=== PATIENT | female | born 1955 | race Caucasian/White ===

== ENCOUNTER 2016-06-22 18:57 | Observation (INO) ==
[2016-06-22] MEDS ORDERED: methylPREDNISolone 125 MG/2 ML VIAL IVP ONE (19:02)
[2016-06-22] MEDS ORDERED: Ipratropium/Albuterol Neb 3 ML IH ONE (19:02)
[2016-06-22 19:21] LABS: Basophils % 0.3 %; Eosinophils # 0.1 K/mcL (0.0-0.6); Eosinophils % 0.8 %; Hematocrit 38.1 % (35.3-44.9); Hemoglobin 12.2 g/dL (11.5-15.4); Immature Granulocytes % 0.4 % (0-4); Lymphocytes # 1.2 K/mcL (0.6-4.6); Lymphocytes % 12.2 %; Mean Corpuscular Hemoglobin 28.7 pg (28.0-33.3); Mean Corpuscular Volume 89.6 fL (83.0-100.0); Mean Platelet Volume 8.4 fL (9.4-12.4); Monocytes # 0.4 K/mcL (0.0-1.3); Monocytes % 3.5 %; Neutrophils # 8.2 K/mcL (1.6-8.9); Platelet Count 246 K/mcL (140-400); Red Blood Count 4.25 M/mcL (3.82-4.97); Red Cell Distribution Width 12.9 % (11.5-14.5); Segmented Neutrophils % 82.8 %
[2016-06-22 19:27] LABS: INR 1.1; Prothrombin Time 11.9 Seconds (9.4-12.1)
[2016-06-22 19:29] LABS: Activated Partial Thrombo Time 23.8 Seconds (26.0-36.0)
--- NOTE | 2016-06-22 19:29 | Emergency Department Note ---
Disposition Clinical Impression: Acute exacerbation of chronic obstructive airways disease, Hypoxia Dyspnea Qualifiers: Dyspnea type: shortness of breath Qualified Code(s): R06.02 - Shortness of breath Disposition: Admitted As Inpatient Condition: Good Time of Disposition: 20:31 SOB HPI - General Chief Complaint: ED Shortness of Breath/Dyspnea Stated Complaint: SOB Time Seen by Provider: 06/22/16 19:01 Source: patient, EMS Mode of arrival: EMS Limitations: no limitations Nursing Notes Reviewed: Yes Vital Signs Reviewed: Yes - History of Present Illness Patient presents emergency room by EMS for evaluation of acute onset of shortness of breath at home. Presented by EMS today for evaluation of shortness of breath. Onset was approximately 30 minutes prior to arrival. Patient has known COPD and emphysema. She uses inhalers and nebulizer treatments at home. She does not typically require oxygen. She is followed at an outside facility where she is evaluated on a regular basis. She denies any recent illnesses denies fevers chills nausea vomiting or diarrhea. Denies chest pain or shortness of breath. Currently she is only complaining of the intermittent shortness of breath that brought her in. She is provided with 1 breathing treatment in transit by EMS and felt much better. Pt Subjective Complaint: shortness of breath Onset (ago): Just [employer] Severity: moderate Consistency/Duration: now resolved Improves with: oxygen, rest, bronchodilators, upright position Worsens with: lying flat, exertion, movement, coughing Known history of: COPD Associated symptoms: Reports: denies other symptoms Treatment prior to arrival: oxygen, bronchodilator Cough present: No Sputum production: No - Related Data Home oxygen amount: none Allergies Allergy/AdvReac Type Severity Reaction Status Date / Time No Known Allergies Allergy Verified 06/22/16 19:17 All systems ED: reviewed and negative except as stated. Constitutional: Denies: fever, chills Cardiovascular: Reports: dyspnea on exertion, orthopnea. Denies: chest pain, palpitations Respiratory: Reports: dyspnea, wheezes. Denies: cough, hemoptysis Gastrointestinal: Denies: nausea, vomiting, diarrhea Genitourinary: Denies: dysuria, frequency Musculoskeletal: Denies: back pain, neck pain Past Medical History - Past Medical History Attestation: Yes The following information was validated with the patient. Source: patient Medical history: Reports: COPD, coronary artery disease, CVA, hyperlipidemia, hypertension, myocardial infarction, peripheral artery disease Psychiatric history: Reports: anxiety, depression - Social History Smoking Status: Former smoker Smokeless Tobacco Status: No Alcohol use: Reports: rarely Drug use: Reports: none Physical Exam - General General appearance: alert - Head Head exam: atraumatic, normocephalic - Eye Eye exam: Present: normal appearance - ENT ENT exam: normal exam, normal oropharynx - Neck Neck exam: Present: normal inspection - Chest Chest inspection: Present: normal inspection, symmetric chest wall rise. Absent : tenderness - Respiratory Respiratory exam: Present: normal lung sounds bilaterally, respiratory distress , wheezes, accessory muscle use - Cardiovascular Cardiovascular exam: Present: regular rate, normal rhythm, normal heart sounds - Abdominal Exam Abdominal exam: Present: soft, Non-Tender, normal bowel sounds - Extremities Exam Extremities exam: Present: normal inspection, full ROM, normal capillary refill , pedal edema (+1 pitting edema up to the midcalf) - Expanded Lower Extremity Exam Lower leg exam: Absent: tenderness, swelling, Homans' sign - Back Exam Back exam: Present: normal inspection - Neurological Exam Neurological exam: Present: alert, oriented X3, CN II-XII intact, normal gait - Skin Skin exam: Present: warm, dry, intact, normal color Course Course Narrative: Patient seen and examined the time of arrival by EMS. 61-year-old female presents today with known history of COPD and emphysema. She feels like she is having acute exacerbation of her COPD. Patient was leaving the house today walked outside and felt short of breath. Within the next 30 minutes she had increased work of breathing. Family is concerned and called EMS. Patient is up visiting family from outside town. She normally has all of her medical care completed in [facility]. Patient denies chest pain fevers chills nausea vomiting or diarrhea. Denies headache vision changes at this point. She denies any falls injuries or trauma. No recent illnesses. Patient was provided with 1 breathing treatment prior to arrival by EMS. Her initial vital signs showed mild tachycardia and hypoxia down the low 90s with no oxygen. When she was given a breathing treatment and placed on 2 L of oxygen by nasal cannula her pulse ox came up to 97%. On presentation here. Patient has mild increased work of breathing she has no acute signs of diffuse wheezing on exam her heart is regular abdomen soft nontender nondistended. She has mild pitting edema in the lower extremities but no acute signs of fluid overload. She is able to converse in full sentences without any signs of shortness of breath. She denies any other symptoms or complaints prior to today. She has no recent illnesses fevers or chills or productive cough. Chest x-ray EKG troponin steroids and breathing treatments ordered at this time. Basic laboratory workup to be completed. Patient is stable appears to be on feeling better at presentation and has what appears to be an exacerbation of chronic lung related issues. We will effectively evaluate for infectious etiology cardiac source undetermined disposition. Discussed possible admission secondary to patient not having any medical records at this facility and my concern for outpatient decompensation secondary to her presentation. Patient is comfortable with this plan if need be - Reevaluation(s) Reevaluation #1: Patient's EKG shows sinus rhythm no acute signs of ST segment elevation. There is no comparable study. Chest x-ray stable in no acute consolidation or signs of infection. Labs are all within normal limits. Repeat evaluation of the patient's lungs show better aeration at this time and air movement. She has less work of breathing at this point. Patient is a poorly controlled COPD patient. She responded appropriately to 3 continue his DuoNeb and steroids here. Concern is noted for outpatient decompensation secondary to multiple events similar to this in her history. Patient usually requires a day in the hospital for steroids and breathing treatments scheduled. Patient denies productive cough or sputum concern for infectious etiology at this time. On my repeat evaluation her pulse ox was 91% on room air while sitting. When she started to converse the pulse ox decreased. Patient may require further evaluation possible outpatient establish care. Disposition will be admitted the hospital at this time. Hospitals paged at this point Time: 20:30 Reevaluation #2: Dr. Meyers and I reviewed the patient's presentation symptoms course of care medical intervention. It except the patient hospital for treatment of what appears to be an acute exacerbation of COPD. No other acute etiology noted during this evaluation treatment course. Recommendation for the hospitalist to order scheduled breathing treatments upstairs which I have accommodated and placed the order for this time. Patient will be observed here in the emergency room until admission process is completed. Time: 20:57 Vital Signs Temperature 98.4 F 06/22/16 19:00 Pulse Rate 98 06/22/16 19:00 Respiratory Rate 25 06/22/16 19:00 Blood Pressure 124/113 06/22/16 19:00 O2 Sat by Pulse Oximetry 93 06/22/16 19:00 Temperature 98.2 F 06/22/16 22:22 Pulse Rate 76 06/22/16 22:22 Respiratory Rate 18 06/22/16 22:22 Blood Pressure 129/61 06/22/16 22:22 O2 Sat by Pulse Oximetry 95 06/22/16 22:22 Oxygen Delivery Oxygen Delivery Room Air Shortness of Breath/Dyspnea - MDM Narrative Medical decision making narrative: COPD exacerbation - Medical Records Medical records reviewed: Yes I reviewed the patient's medical records. - Lab Data Lab results reviewed: Yes I reviewed the patient's lab results. Result diagrams: 06/22/16 19:15 06/22/16 19:15 - Radiology Data Radiology results reviewed: Yes I reviewed the patient's radiology results. Chest x-ray stable no acute signs of pulmonary infiltrate. Reviewed by myself and confirmed by the radiologist - EKG Data EKG attestation: Yes I reviewed and interpreted this EKG. EKG shows normal: Reports: sinus rhythm, axis, intervals, QRS complexes, ST-T waves Rate: Reports: normal Rhythm: Reports: NSR [place]/QRS: Reports: normal When compared to previous EKG there are: previous EKG unavailable Interpretation: Reports: no acute changes Attestation Statement - Attestation Attestation: I examined this patient and my medical decision-making was reviewed with the BOTTOM TURNER/PA/Advanced Practice Nurse/Resident Physician. I agree with the documented findings, disposition and treatment plan as described except to the extent set forth below. 61-year-old female presents ED because difficulty breathing. She has history of COPD. She is on home nebulizer treatments with reasonable control. She is staying with her son today and started having increasing dyspnea. She took a home albuterol inhaler with marginal improvement and called EMS. Denies productive cough. No fevers. No chest pain. No recent long distance travel. No periods of prolonged immobilization. No recent travel Patient is slightly tachypneic. She is awake alert talkative. Oropharynx is clear. Neck is supple. Trachea midline. Chest with inspiratory and expiratory wheezes in all lung multani. No focal consolidation. Breath sounds are symmetrically diminished. Cardiac regular rhythm. No murmurs. Abdomen soft and nontender. Extremities warm and dry without asymmetric edema. Chest x-ray was without any acute findings. She was slow to respond to sequential DuoNeb treatments and steroids. She will be admitted for ongoing observation and treatment.
[2016-06-22 19:35] LABS: Calcium 9.2 mg/dL (8.6-10.8); Potassium 4.2 mEq/L (3.5-4.5)
[2016-06-22] MEDS: Albuterol 2.5 MG/3 ML NEBULIZER IH SCH ×2 (21:12→23:14)
[2016-06-23] MEDS ORDERED: Acetaminophen 325 MG TABLET PO PRN (02:39)
[2016-06-23] MEDS ORDERED: Naloxone 0.4 MG/ML INJ IVP PRN (02:39)
[2016-06-23] MEDS ORDERED: Albuterol 2.5 MG/3 ML NEBULIZER IH PRN (02:39)
[2016-06-23] MEDS ORDERED: *HR* Promethazine 25 MG/ML VIAL IVP PRN (02:39)
[2016-06-23] MEDS ORDERED: 0.9 % Sodium Chloride 1,000 ML IVC SCH (02:45)
--- NOTE | 2016-06-23 02:52 | Internal Med History&Physical ---
Date of Encounter: 06/23/16 Time of Encounter: 02:05 Assessment and Plan (1) Acute exacerbation of chronic obstructive airways disease Current visit: Yes Status: Acute 1. Pt seems to have improved immensely since ER presentation. 2. Continue steroids, aerosols, and will add oral doxycyline for possible bacterial etiology. 3. Wean off oxygen. 4. I anticipate discharge later today or tomorrow if continues to improve. (2) Chronic low back pain Current visit: Yes Status: Chronic 1. Continue home meds as appropriate. 2. No acute flare up or exacerbation. Qualifiers: Back pain laterality: bilateral Sciatica presence: with sciatica Sciatica laterality: bilateral sciatica Qualified Code(s): M54.42 - Lumbago with sciatica, left side; M54.41 - Lumbago with sciatica, right side; G89.29 - Other chronic pain (3) DVT prophylaxis Current visit: Yes Status: Acute 1. Heparin SQ. Internal Medicine - H&P: HPI Chief complaint: cough, wheeze, SOB Admitted From: Emergency Dept Plans for Post Hospital Care: Home History of present illness: Ms. Vasquez is a 61 year old female who presents with a 2 day history of cough, wheezing, congestion, and worsening shortness of breath. She has a history of underlying COPD and has been feeling well until 2 days ago. She denies any difficulty with the weather or environmental allergies. However, she was visiting her son in [place] and his girlfriend who breeds dogs. She noticed significant wheezing and shortness of breath with exposure to these dogs and dog dander. Despite using her inhalers, she continued to wheeze and be short of breath. She went to the ER for evaluation and workup. She improved with treatment in the ER. However, she still was symptomatic and working a little hard to breathe. She was therefore admitted to the hospitalist service. Upon my assessment of the patient, she was sleeping and breathing comfortably. Upon awakening, she states she feels much better than initial presentation. She still has some wheezing and cough, but overall, she has improved significantly. She is a former smoker and quit several years ago. She was last hospitalized for COPD about 9 months ago. She has never been in the ICU or on ventilator for COPD exacerbation. Past Med Surg Social Fam HX - Past Medical History Attestation: Yes The following information was validated with the patient. Source: patient, nursing notes reviewed Medical history: COPD, coronary artery disease, CVA, hyperlipidemia, hypertension, myocardial infarction, peripheral artery disease, other (chronic low back pain) Psychiatric history: anxiety, depression - Past Surgical History Surgical History: cholecystectomy, hysterectomy, other (back/spine surgery) - Social History Smoking Status: Former smoker Smokeless Tobacco Status: No Alcohol use: rarely Drug use: none Current living situation: Home, With Family Activity Level: Uses cane/walker Recent Out of Country Travel Within the Last 8 Weeks: No - Family History Mother Living Status: Hx Family Respiratory Disorders: No Hx Family Neurologic Disorders: Yes Father Living Status: Hx Family Respiratory Disorders: Yes Internal Medicine - H&P: Meds Amitriptyline HCl 100 mg PO HS 06/23/16 [History] Atorvastatin [Lipitor] 40 mg PO HS 06/23/16 [History] Diltiazem 24Hr Cd 300 mg PO HS 06/23/16 [History] Escitalopram [Lexapro] 10 mg PO DAILY 06/23/16 [History] Gabapentin [Neurontin] 400 mg PO TID 06/23/16 [History] Ibuprofen [Motrin] 800 mg PO Q6H PRN 06/23/16 [History] Melatonin [Melatonin] 300 mcg PO HS PRN 06/23/16 [History] OxyCONTIN 30 mg PO Q12HR 06/23/16 [History] Oxycodone HCl [Oxaydo] 5 mg PO QID 06/23/16 [History] Tizanidine HCl 4 mg PO TID PRN 06/23/16 [History] Allergies No Known Allergies Allergy (Verified 06/22/16 19:17) - Constitutional Constitutional: no chills, no fever(s) - EENT Eyes: no blurry vision, no change in vision Ears: no ear pain, no tinnitus Nose, mouth and throat: nasal congestion, nasal discharge, post-nasal drip, no sinus pressure, no sore throat - Cardiovascular Cardiovascular ROS IM: no chest pain, no diaphoresis, no lightheadedness, no orthopnea - Respiratory Respiratory: cough, dyspnea, wheezing, chest congestion, no hemoptysis - Gastrointestinal Gastrointestinal: no abdominal pain, no diarrhea, no hematemesis, no hematochezia, no melena, no nausea, no vomiting - Genitourinary Genitourinary: no dysuria, no flank pain, no hematuria - Musculoskeletal Musculoskeletal ROS IM: back pain, no arthralgias - Integumentary Integumentary IM: no rash, no jaundice - Neurological Neurological ROS: abnormal gait (chronic -- due to back problems and surgery), no dizziness, no focal weakness, no frequent falls, no headache(s) - Psychiatric Psychiatric: no anxiety, no depression - Endocrine Endocrine IM: no polydipsia, no polyuria - Hematologic/Lymphatic Hematologic/Lymphatic: no easy bruising, no lymphadenopathy - Allergic/Immunologic Allergic/Immunologic: itchy eyes, wheezing, no uticaria, no GI upset with certain foods - Constitutional Vitals: Temp Pulse Resp BP Pulse Ox 98.2 F 76 16 129/61 93 06/22/16 22:22 06/22/16 22:22 06/22/16 23:14 06/22/16 22:22 06/22/16 23:14 General appearance: Present: cooperative, A&O X 3, pleasant, no acute distress - Head Head exam: Present: atraumatic, normal inspection - Expanded Head Exam Head exam expanded: Absent: general tenderness - Eye Eye exam: Present: EOMI, PERRL. Absent: scleral icterus Pupils: Present: normal accommodation - ENT ENT exam: Present: mucous membranes dry, normal exam - Neck Neck exam general surgery: Present: full ROM, supple. Absent: tenderness, thyromegaly - Respiratory Respiratory exam: Present: accessory muscle use, decreased breath sounds, prolonged expiratory phase, respiratory distress (mild), wheezes. Absent: chest wall tenderness, rales, rhonchi - Cardiovascular Cardiovascular exam: Present: distant heart sounds, RRR, +S1, +S2. Absent: diastolic murmur, systolic murmur - GI/Abdominal GI/Abdominal exam: Present: normal bowel sounds, soft, no peritoneal signs. Absent: guarding, hepatomegaly, rebound, splenomegaly, tenderness - Extremities Exam Extremities exam: Present: full ROM, warm. Absent: calf tenderness, joint swelling, tenderness - Back Exam Back exam: Present: normal inspection. Absent: CVA tenderness (L), CVA tenderness (R) - Neurological Exam Neurological exam: Present: alert, CN II-XII intact, oriented X3, no focal deficits, strengths equal and symetr throughout - Psychiatric Psychiatric exam: Present: normal affect, normal mood - Skin Skin exam: Present: dry, warm. Absent: rash Internal Med - H&P Results - Labs CBC & Chem 7: 06/22/16 19:15 06/22/16 19:15 - Diagnostic Studies Chest x-ray Status: image reviewed by me (negative other than elevated left hemidiaphragm)
[2016-06-23 02:58] LABS: Bilirubin,Urine Small (Negative); Blood,Urine Negative (Negative); Clarity,Urine Cloudy (Clear); Color,Urine Dark Yellow (Yellow); Glucose,Urine (UA) 100 mg/dL (Normal); Ketones,Urine Negative (Negative); Leukocyte Esterase,Urine Small (Negative); Nitrite,Urine Negative (Negative); PH,Urine 5.5 pH Units (5.0-8.0); Protein,Urine 30 mg/dL (Neg-Trace); Specific Gravity,Urine 1.025 (1.010-1.025); Urobilinogen,Urine Normal (Normal)
[2016-06-23 03:01] LABS: Bacteria,Urine Many per hpf (None-Few); Hyaline Casts,Urine Few per lpf (None-Few); Squamous Epithelial Cell,Urine Many per lpf (None-Few); WBC,Urine 15-30 per hpf (0-3)
[2016-06-23 03:53] LABS: Calcium 9.3 mg/dL (8.6-10.8); Magnesium 2.7 mg/dL (1.6-2.6)
[2016-06-23] MEDS: Ipratropium/Albuterol Neb 3 ML IH SCH ×2 (03:56→11:04)
[2016-06-23] MEDS: Doxycycline 100 MG CAPSULE PO SCH ×2 (05:19→09:12)
[2016-06-23] MEDS ORDERED: *HR* Heparin 5,000 UNIT/ML VIAL SQ SCH (06:00)
[2016-06-23] MEDS ORDERED: *HR* OxyCODONE ER (12 HR) 10 MG TABLET PO SCH (06:00)
[2016-06-23] MEDS ORDERED: methylPREDNISolone 125 MG/2 ML VIAL IVP SCH (06:00)
[2016-06-23] MEDS: *HR* OxyCODONE Immed Rel 5 MG TABLET PO PRN ×2 (09:12→15:19)
[2016-06-23] MEDS: Gabapentin 400 MG CAPSULE PO SCH ×2 (09:12→15:19)
[2016-06-23 11:33] VITALS: BP 152/82
--- NOTE | 2016-06-23 12:54 | Electrocardiograph Report ---
[place] [id number] Test Date: 2016-06-22 Pat Name: Ellen Vasquez Department: 105 Room: [facility] Gender: F Manager [employer]: [employer] : 1955 Requested By: Miguel Angel Ricks Order Number: [id number] Reading MD: Dwaine Rogers Measurements Intervals [place] Rate: 95 P: 13 MO: 173 QRS: -24 QRSD: 98 T: 16 QT: 330 QTc: 383 Interpretive Statements SINUS RHYTHM Electronically Signed On 06-23-2016 12:52:31 EDT by Dwaine Rogers
--- NOTE | 2016-06-23 14:25 | Discharge Summary ---
Date of Encounter: 06/23/16 Time of Encounter: 09:20 - Discharge Diagnosis (1) Acute exacerbation of chronic obstructive airways disease Priority: Primary Status: Acute Comments: Patient presented to the emergency department last night for shortness of breath. She staying with her son while she tries to find a place to live in town, she says that she believes being exposed to multiple dogs at her son's house caused her to have difficulty. She had greatly improved since arriving at the ER by the time she was admitted. We will continue a steroid taper. Patient does not wear oxygen at home. Her lungs are clear. She denies pain or difficulty breathing. She speaks easily in full sentences. Chest x-ray in the emergency department showed nonspecific elevation left hemidiaphragm. No focal consolidation in the chest. She says she will follow- up with her primary care physician at home. EKG showed sinus rhythm rate 95, [place] interval 173, QTC 383. She is denying chest pain. Patient has UTI as well. Culture is pending. I will give her Levaquin 250 mg daily for 3 days until blood cultures come back. (2) Chronic low back pain Priority: Secondary Status: Chronic Comments: Continue home medications. Qualifiers: Back pain laterality: bilateral Sciatica presence: with sciatica Sciatica laterality: bilateral sciatica Qualified Code(s): M54.42 - Lumbago with sciatica, left side; M54.41 - Lumbago with sciatica, right side; G89.29 - Other chronic pain (3) DVT prophylaxis Priority: Secondary Status: Acute Comments: Heparin subcutaneous. (4) UTI (urinary tract infection) Priority: Secondary Status: Acute Comments: Patient currently has a urinary tract infection. Will give Levaquin to treat both COPD exacerbation and urinary tract infection. Cultures pending patient will need to be notified if she needs a different antibiotic. Qualifiers: Urinary tract infection type: acute cystitis Hematuria presence: without hematuria Qualified Code(s): N30.00 - Acute cystitis without hematuria - Discharge Medications Prescriptions: Levofloxacin [Levaquin] 250 mg PO BID #8 tablet PredniSONE [Jose] 10 mg PO DAILY #31 tablet. Home Medications: Albuterol Sulfate [Ventolin Hfa] 2 puff IH Q4H PRN 06/23/16 [History] Amitriptyline HCl 100 mg PO HS 06/23/16 [History] Atorvastatin [Lipitor] 40 mg PO HS 06/23/16 [History] Diltiazem CD (24hr) [Cardizem CD] 300 mg PO DAILY 06/23/16 [History] Escitalopram [Lexapro] 10 mg PO DAILY 06/23/16 [History] Gabapentin [Neurontin] 400 mg PO TID 06/23/16 [History] Ibuprofen [Motrin] 800 mg PO Q6H PRN 06/23/16 [History] Levofloxacin [Levaquin] 250 mg PO BID #8 tablet 06/23/16 [Rx] Melatonin 300 mcg PO HS PRN 06/23/16 [History] OxyCONTIN 30 mg PO Q12HR 06/23/16 [History] Oxycodone HCl [Oxaydo] 5 mg PO QID 06/23/16 [History] PredniSONE [Jose] 10 mg PO DAILY #31 tablet. 06/23/16 [Rx] Tizanidine HCl 4 mg PO TID PRN 06/23/16 [History] Allergies/Adverse Reactions: Allergies No Known Allergies Allergy (Verified 06/23/16 11:58) Date of admission: 06/22/16 21:10 Primary care physician: PCP NO Discharging clinician: Nsurat Napier Anticipated date of discharge: 06/23/16 - Patient Status Disposition: Home, Self-Care Functional capacity at discharge: independent ambulation Overall status at discharge: patient is back to baseline - Discharge Instructions Follow Up With: NO,PCP [Primary Care Provider] - - Diet and Activity Activity: increase activity as tolerated Diet: advance to your usual diet Interval History: Patient presented to the emergency department last night with difficulty breathing. She is staying with her son in [place], she lives in [place]. She is visiting to attempt to find a place to live. She is not normally live with dogs and was exposed to multiple dogs at her son's house. She believes this is what caused her exacerbation. She was admitted and had greatly improved since arriving at the emergency department. She was treated with steroids and aerosols and was given doxycycline. Patient will be also sent home with prescription for a steroid taper. She denies needing any refills on her inhalers or nebulizer treatments. She was requiring oxygen to maintain her saturations, however she has not at this time. Chest x-ray was negative for focal consolidation or acute process. Her EKG was normal sinus rhythm. Her labs are within normal limits. Patient also has a urinary tract infection. I have sent her home with a prescription for Levaquin to treat both the UTI and the respiratory infection. Patient will need to be notified if she needs a different antibiotic. Patient denies symptoms and was not aware that she had a urinary tract infection. Patient was given Mag-Ox 400 mg by mouth as well for decreased magnesium. Patient states that she is ready to go home. She denies complaints or difficulty breathing. She speaks easily in full sentences at this time. Lungs are clear but diminished throughout. There is no wheezing, stridor, rales, or rhonchi. Patient is stable and appropriate for discharge. Hospital course: Ms. Vasquez is a 61 year old female Time spent discussing smoking cessation with patient: 3 to 10 minutes - Time Spent with Patient Total time spent providing and/or coordinating discharge services: Less than 30 minutes - Constitutional Vitals: Temp Pulse Resp BP Pulse Ox 98.2 F 95 16 152/82 95 06/23/16 11:32 06/23/16 11:32 06/23/16 11:32 06/23/16 11:32 06/23/16 11:32 General appearance: Present: cooperative, A&O X 3, pleasant, no acute distress, obese - Head Head exam: Present: normal inspection - Eye Eye exam: Present: normal appearance, conjuntiva pink - ENT ENT exam: Present: mucous membranes moist, normal exam, normal external ear exam - Neck Neck exam general surgery: Present: normal inspection. Absent: lymphadenopathy , tenderness - Respiratory Respiratory exam: Present: decreased breath sounds, CTAB. Absent: accessory muscle use, chest wall tenderness, rales, respiratory distress, rhonchi, wheezes , tachypnea - Cardiovascular Cardiovascular exam: Present: RRR, +S1, +S2. Absent: diastolic murmur, systolic murmur - GI/Abdominal GI/Abdominal exam: Present: distended, normal bowel sounds, soft. Absent: hepatomegaly, tenderness - Extremities Exam Extremities exam: Present: normal capillary refill, warm, radial pulses palpable and symetrical. Absent: pedal edema, tenderness
[2016-06-23] MEDS ORDERED: Diltiazem CD (24hr) 300 MG CAPSULE PO SCH (21:00)
== END 2016-06-23 15:58 | disposition home or self-care (01) ==
LOC: 3NENU 18:57 → EMEROO 18:57 → SUATTDRO 21:10 → 3NENU 22:00
PROVIDERS: ADMIT Pediatrics; ATTEND Pediatrics